=== PATIENT | female | born 1995 | race Caucasian/White ===

== ENCOUNTER 2016-11-19 10:14 | Emergency (ER) | payer MEDICAID, OTHER ==
[~2016-11-19] VITALS: Ht 165.1 cm; Wt 59.0 kg
[~2016-11-19 10:14] MED LIST: OMEP20EC4 PO
[2016-11-19 10:23] VITALS: BP 135/57
--- NOTE | 2016-11-19 10:26 | NUR ---
PT AMBULATED TO BED 8
[2016-11-19] MEDS ORDERED: DICYCLOMINE HCL LIQUID 20 MG, ALUMINUM HYD/MAG/SIMETHICONE 30 ML, LIDOCAINE VISCOUS 2% ... PO ONE ×3 (10:35)
[2016-11-19] MEDS ORDERED: LEVOFLOXACIN 500 MG TAB PO ONE (10:40)
[2016-11-19] MEDS ORDERED: PHENAZOPYRIDINE 100 MG TAB PO ONE (10:40)
--- NOTE | 2016-11-19 10:48 | NUR ---
21/F c/o UTI symptoms x3 weeks. Patient states she was prescribed Macrobid with no improvement. Pt c/o frequency, urgency, dysuira and suprapubic pain radiating to lower back, 8/. Denies fever or chills. Denies N/V/D. Skin warm and dry, normal in color for ethnicity. AOX4, ambulatory with steady gait. VSS.
[2016-11-19 11:09] LABS: BILIRUBIN,URINE NEGATIVE (NEGATIVE); BLOOD, URINE NEGATIVE (NEGATIVE); COLOR,URINE YELLOW (YELLOW); LEUKOCYTE ESTERASE ,URINE NEGATIVE (NEGATIVE); NITRITE, URINE NEGATIVE (NEGATIVE); PROTEIN,URINE NEGATIVE (NEGATIVE); UGLUCOSE NEGATIVE (NEGATIVE); UROBILINOGEN,URINE 0.2 EU/dL (0.2 - 1)
[2016-11-19 11:33] LABS: APPEARANCE,URINE SLIGHTLY HAZY (CLEAR)
[2016-11-19 11:34] LABS: RBC,URINE NONE SEEN /HPF (0-5); WBC,URINE 0-5 (RARE) /HPF (0-5)
[2016-11-19 11:35] LABS: BACTERIA,URINE 1+ /HPF (None Seen); SQUAMOUS EPITHELIAL CELL,UR 0-3 (FEW) /LPF (0-3 (FEW)); URINE AMORPHOUS PHOSPHATES 1+ /HPF (None Seen)
[2016-11-19 11:57] VITALS: BP 135/57
--- NOTE | 2016-11-19 11:58 | NUR ---
Patient discharged with v/s stable. Written and verbal after care instructions given and explained. Patient alert, oriented and verbalized understanding of instructions. Ambulatory with steady gait. All questions addressed prior to discharge. ID band removed. Patient advised to follow up with PMD. Rx of PYRIDIUM, KEFLEX, MYLANTA, AND BENTYL given. Patient educated on indication of medication including possible reaction and side effects. Opportunity to ask questions provided and answered.
== END 2016-11-19 11:15 | disposition home or self-care (01) ==
LOC: MED 10:14
DX: R10.30 Lower abdominal pain, unspecified (principal); K21.9 Gastro-esophageal reflux disease without esophagitis
CPT/HCPCS: 81001; 81025; 87086; 99284

== ENCOUNTER 2017-02-28 20:20 | Emergency (ER) | payer OTHER ==
[~2017-02-28] VITALS: Ht 162.6 cm; Wt 64.0 kg
[2017-02-28 20:46] VITALS: BP 116/74
--- NOTE | 2017-02-28 23:00 | NUR ---
PATIENT PRESENTS TO ED WITH C/O EPIGASTRIC PAIN RADIATING TO HER LOWER BACK, AND LOWER ABD PAIN, WITH H/A, AND BLEEDING IN HER STOOLS PT SKIN IS PINK/WARM/DRY; AAOX4 WITH EVEN AND STEADY GAIT; LUNGS CLEAR BL; HR EVEN AND REGULAR; PT DENIES ANY FEVER, CP, SOB, OR COUGH AT THIS TIME; PATIENT STATES PAIN OF 9/10 AT THIS TIME; VSS; PATIENT POSITIONED FOR COMFORT; HOB ELEVATED; BEDRAILS UP X2; BED DOWN. ER MD MADE AWARE OF PT STATUS.
--- NOTE | 2017-02-28 23:00 | NUR ---
Patient to bed 06.
[2017-02-28] MEDS ORDERED: ONDANSETRON 4 MG/2 ML VIAL IVP ONE (23:15)
[2017-02-28] MEDS ORDERED: KETOROLAC 30 MG/ML VIAL IVP ONE (23:15)
[2017-02-28] MEDS ORDERED: NACL 0.9% 500 ML IV ONE (23:15)
[2017-02-28 23:48] LABS: HEMATOCRIT 41.6 % (36-48); HEMOGLOBIN 13.1 g/dL (12.0-16.0); MEAN CORPUSCULAR HEMOGLOBIN 26 pg (27-31); MEAN CORPUSCULAR HGB CONC 32 g/dL (33-37); MEAN CORPUSCULAR VOLUME 82 fL (80-94); PLATELET COUNT (AUTO) 384 K/uL (140-450); RED BLOOD CELL COUNT(AUTO) 5.07 MIL/uL (4.20-5.40); RED CELL DISTRIBUTION WIDTH 14.8 % (11.6-13.7); WHITE BLOOD COUNT (AUTO) 8.9 K/uL (4.5-11.0)
[2017-02-28 23:53] LABS: ANION GAP 10.2 (8-16); CARBON DIOXIDE 27.5 mmol/L (21-32); POTASSIUM 3.7 mmol/L (3.5-5.1)
[2017-02-28 23:56] LABS: LYMPHOCYTES % (MANUAL) 32 % (20-46); MONOCYTES % (MANUAL) 7 % (5-12)
[2017-02-28 23:59] LABS: ALBUMIN 4.1 g/dL (3.4-5.0); TOTAL BILIRUBIN 0.2 mg/dL (0.0-1.0)
[2017-03-01 01:06] VITALS: BP 111/71
--- NOTE | 2017-03-01 01:07 | NUR ---
Patient discharged with v/s stable. Written and verbal after care instructions given and explained. Patient alert, oriented and verbalized understanding of instructions. Ambulatory with steady gait. All questions addressed prior to discharge. ID band removed. Patient advised to follow up with PMD. Rx of MAALOX,TRAMADOL,PROTONIX 40MG given. Patient educated on indication of medication including possible reaction and side effects. Opportunity to ask questions provided and answered.
== END 2017-03-01 01:07 | disposition home or self-care (01) ==
LOC: MED 20:20
DX: K29.70 Gastritis, unspecified, without bleeding (principal); K21.9 Gastro-esophageal reflux disease without esophagitis; Z79.899 Other long term (current) drug therapy
CPT/HCPCS: 36415; 76705; 80053; 81025; 83690; 85025; 96361; 96374; 96375; 99285; J1885; J2405; J7030; Q0092

== ENCOUNTER 2017-06-14 09:39 | Emergency (ER) | payer OTHER ==
[~2017-06-14] VITALS: Ht 162.6 cm; Wt 61.3 kg
[2017-06-14 09:46] VITALS: BP 119/69
--- NOTE | 2017-06-14 09:54 | NUR ---
Patient ambulated to bed 02.
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
--- NOTE | 2017-06-14 10:06 | NUR ---
ER MD BROWNING BY BEDSIDE
[2017-06-14] MEDS ORDERED: traMADol 50 MG TAB PO ONE (10:10)
[2017-06-14 10:40] VITALS: BP 106/61
== END 2017-06-14 10:40 | disposition home or self-care (01) ==
LOC: MED 09:39
DX: S00.03XA Contusion of scalp, initial encounter (principal); K29.70 Gastritis, unspecified, without bleeding; V49.9XXA Car occupant (driver) (passenger) injured in unspecified traffic accident, initial encounter; Y93.I9 Activity, other involving external motion; Y92.488 Other paved roadways as the place of occurrence of the external cause; Y99.8 Other external cause status
CPT/HCPCS: 99283

== ENCOUNTER 2017-09-12 15:39 | Emergency (ER) | payer OTHER ==
[~2017-09-12] VITALS: Ht 165.1 cm; Wt 59.9 kg
[2017-09-12 15:55] VITALS: BP 118/76
--- NOTE | 2017-09-12 17:06 | NUR ---
PATIENT AMB. TO BED #12
--- NOTE | 2017-09-12 17:18 | NUR ---
Pt presents to ED with x3 days of lower abdominal pain that radiates to left lower abdomen and lower back. Pt states Hx of ovarian cyst x6 months ago. VSS. Positioned in bed for comfor. CONCHITA YEE aware. Continue to monitor. Addendum: 09/12/17 at 1803 by [facility] Pt presents to ED with x3 days of lower abdominal pain that radiates to left lower abdomen and lower back 04/07. Pt states Hx of ovarian cyst x6 months ago. VSS. Positioned in bed for comfort. CONCHITA YEE aware. Continue to monitor.
--- NOTE | 2017-09-12 19:19 | NUR ---
REPORT RECEIVED FROM DEYSI GONZALEZ RN
--- NOTE | 2017-09-12 19:25 | NUR ---
REPORT RECEIVED FROM CHAPARRO JO
--- NOTE | 2017-09-12 19:29 | NUR ---
Any dixon in [facility] - 09/12/17 at 1952 by JUAN DIEGO REPORT RECEIVED FROM CHAPARRO JO
[2017-09-12 20:48] LABS: APPEARANCE,URINE CLEAR (CLEAR); BILIRUBIN,URINE NEGATIVE (NEGATIVE); BLOOD, URINE NEGATIVE (NEGATIVE); COLOR,URINE YELLOW (YELLOW); LEUKOCYTE ESTERASE ,URINE NEGATIVE (NEGATIVE); NITRITE, URINE NEGATIVE (NEGATIVE); UGLUCOSE NEGATIVE (NEGATIVE)
[2017-09-12 21:31] LABS: BASOPHILS # (AUTO) 0.4 K/uL (0.00-0.22); EOSINOPHILS # (AUTO) 0.1 K/uL (0-0.4); HEMATOCRIT 46.2 % (36-48); HEMOGLOBIN 14.7 g/dL (12.0-16.0); LYMPHOCYTES # (AUTO) 3.5 K/uL (2.5-16.5); MEAN CORPUSCULAR HEMOGLOBIN 26 pg (27-31); MEAN CORPUSCULAR HGB CONC 32 g/dL (33-37); MEAN CORPUSCULAR VOLUME 82 fL (80-94); MONOCYTES # (AUTO) 0.7 K/uL (0.8-1.0); NEUTROPHILS # (AUTO) 7.5 K/uL (1.8-7.7); PLATELET COUNT (AUTO) 332 K/uL (140-450); RED BLOOD CELL COUNT(AUTO) 5.66 MIL/uL (4.20-5.40); RED CELL DISTRIBUTION WIDTH 15.5 % (11.6-13.7); WHITE BLOOD COUNT (AUTO) 12.2 K/uL (4.8-10.8)
[2017-09-12 21:48] LABS: ANION GAP 11.9 (8-16); CREATININE 0.8 mg/dL (0.6-1.3); POTASSIUM 3.9 mmol/L (3.5-5.1)
[2017-09-12 21:55] LABS: TOTAL BILIRUBIN 0.5 mg/dL (0.0-1.0)
[2017-09-12 22:12] VITALS: BP 115/72
--- NOTE | 2017-09-12 22:12 | NUR ---
Patient discharged with v/s stable. Written and verbal after care instructions given and explained. Patient alert, oriented and verbalized understanding of instructions. Ambulatory with steady gait. All questions addressed prior to discharge. ID band removed. Patient advised to follow up with PMD. Rx of NORCO AND COLACE given. Patient educated on indication of medication including possible reaction and side effects. Opportunity to ask questions provided and answered.
== END 2017-09-12 22:12 | disposition home or self-care (01) ==
LOC: MED 15:39
DX: K59.00 Constipation, unspecified (principal); K21.9 Gastro-esophageal reflux disease without esophagitis
CPT/HCPCS: 36415; 74018; 74176; 80053; 81003; 81025; 83690; 85025; 85610; 85730; 99285; Q0092

== ENCOUNTER 2021-01-07 14:43 | Emergency (ER) | payer OTHER ==
[~2021-01-07] VITALS: Ht 162.6 cm; Wt 59.0 kg
[~2021-01-07 14:43] MED LIST changes: +OMEP20EC11 PO; -OMEP20EC4 PO
--- NOTE | 2021-01-07 14:57 | NUR ---
Pt ambulated to ER bed 3.
--- NOTE | 2021-01-07 15:01 | NUR ---
Pt ambulated to restroom for UA collection.
[2021-01-07] MEDS ORDERED: KETOROLAC 30 MG/ML VIAL IVP ONE (15:20)
[2021-01-07] MEDS ORDERED: NACL 0.9% 1,000 ML IV ONE (15:20)
--- NOTE | 2021-01-07 15:31 | NUR ---
BLOOD DRAWN BEDSIDE. CHAPARRO LEIJA WALKED OVER TO LAB
[2021-01-07] MEDS ORDERED: KETOROLAC 15 MG/ML VIAL IVP ONE ×2 (15:35)
[2021-01-07 15:43] LABS: BASOPHILS % (AUTO) 0.6 % (0.0-2.0); EOSINOPHILS # (AUTO) 0.1 K/uL (0-0.4); EOSINOPHILS % (AUTO) 1.7 % (0.0-4.0); HEMATOCRIT 37.3 % (36-48); HEMOGLOBIN 12.7 g/dL (12.0-16.0); LYMPHOCYTES # (AUTO) 1.7 K/uL (2.5-16.5); LYMPHOCYTES % (AUTO) 30.2 % (20.5-51.1); MEAN CORPUSCULAR HEMOGLOBIN 31 pg (27-31); MEAN CORPUSCULAR HGB CONC 34 g/dL (33-37); MEAN CORPUSCULAR VOLUME 92.1 fL (80-94); MONOCYTES # (AUTO) 0.4 K/uL (0.8-1.0); MONOCYTES % (AUTO) 7.4 % (1.7-9.3); NEUTROPHILS # (AUTO) 3.4 K/uL (1.8-7.7); NEUTROPHILS % (AUTO) 60.1 % (42.2-75.2); PLATELET COUNT (AUTO) 371 K/uL (140-450); RED BLOOD CELL COUNT(AUTO) 4.05 MIL/uL (4.20-5.40); RED CELL DISTRIBUTION WIDTH 13.9 % (11.6-13.7); WHITE BLOOD COUNT (AUTO) 5.7 K/uL (4.8-10.8)
--- NOTE | 2021-01-07 15:47 | NUR ---
PT AMBULATED TI CT WITH TECH Addendum: 01/07/21 at 1552 by [email or web address] PT AMBULATED TO CT WITH TECH
--- NOTE | 2021-01-07 15:47 | NUR ---
Any dixon in ED - 01/07/21 at 1552 by [email or web address] PT AMBULATED TO XRAY WITH TECH
--- NOTE | 2021-01-07 15:51 | NUR ---
25 Y/O FEMALE C/O UTI SYMPTOMS X2 MONTHS. PT HAS SEEN PCP X2 ALONG WITH 2 ER VISITS. PT WAS ADMITTED TO HOSPITAL IN [place] FOR 1 WEEK WITH UTI, PT HAD CATHETER PLACED. D/C 2 WEEKS AGO. SYMPTOMS CAME BACK, SAW PCP AND STILL HAS NOT GONE AWAY. PT C/O DYSURIA, CHILLS, LOWER BACK TENDERNESS. DENIES BLOOD IN URINE. PT STATES PAIN RADIATES TO LOWER VAGINAL AREA AND NO ABX HAVE BEEN ABLE TO HELP PMH:DENIES SX: [place] BUTT LIFT X2 WEEKS AGO (UNABLE TO SIT) NKDA
--- NOTE | 2021-01-07 16:51 | NUR ---
BP READING 99/54. JESSE GARCIA MADE AWARE
[2021-01-07 16:55] LABS: ALBUMIN 3.9 g/dL (3.4-5.0); ANION GAP 15.6 (8-16); CARBON DIOXIDE 23.4 mmol/L (21-32); CREATININE 0.8 mg/dL (0.6-1.3); TOTAL BILIRUBIN 0.4 mg/dL (0.0-1.0)
[2021-01-07] MEDS ORDERED: SULF-58 PO (16:59)
[2021-01-07 17:08] VITALS: BP 99/54
--- NOTE | 2021-01-07 17:09 | NUR ---
Patient discharged with v/s stable. Written and verbal after care instructions given and explained. Patient alert, oriented and verbalized understanding of instructions. Ambulatory with steady gait. All questions addressed prior to discharge. ID band removed. Patient advised to follow up with PMD. Rx of BACTRIM 400-80 MG TAB PO given. Patient educated on indication of medication including possible reaction and side effects. Opportunity to ask questions provided and answered.
== END 2021-01-07 17:09 | disposition home or self-care (01) ==
LOC: MED 14:43
DX: N39.0 Urinary tract infection, site not specified (principal); R30.0 Dysuria; R68.83 Chills (without fever); M54.5 Low back pain; K21.9 Gastro-esophageal reflux disease without esophagitis; Z98.890 Other specified postprocedural states; Z79.899 Other long term (current) drug therapy
CPT/HCPCS: 36415; 74176; 80053; 81002; 81025; 85025; 87086; 87491; 96361; 96374; 96375; 99284; J1885; J7030

== ENCOUNTER 2021-01-09 10:30 | Emergency (ER) | payer OTHER ==
[~2021-01-09] VITALS: Ht 162.6 cm; Wt 59.0 kg
[~2021-01-09 10:30] MED LIST changes: +SULF-58 PO
[2021-01-09 10:35] VITALS: BP 118/62
--- NOTE | 2021-01-09 10:35 | NUR ---
TO BED AMBULATORY
--- NOTE | 2021-01-09 10:55 | NUR ---
MD Vanessa at the bedside evaluating patient.
--- NOTE | 2021-01-09 11:00 | NUR ---
Patient is a 25 y/o female c/o dysuria x4 days. Patient states hx of multiple UTIs in the last 2 months. Per patient, had emirati butt lift surgery two weeks ago and was admitted to [facility] for sepsis. Patient states that she was given antibiotic for UTI but it has not helped. PMH denies NKA
[2021-01-09] MEDS ORDERED: PYR100 PO (11:15)
[2021-01-09] MEDS ORDERED: IBUP-2213 PO (11:15)
[2021-01-09] MEDS ORDERED: NITR100C7 PO (11:15)
[2021-01-09 11:29] VITALS: BP 118/62
--- NOTE | 2021-01-09 11:29 | NUR ---
Patient discharged with v/s stable. Written and verbal after care instructions given and explained. Patient alert, oriented and verbalized understanding of instructions. Ambulatory with steady gait. All questions addressed prior to discharge. ID band removed. Patient advised to follow up with PMD. Rx of nitrofurantoin, ibuprofen, pyridium given. Patient educated on indication of medication including possible reaction and side effects. Opportunity to ask questions provided and answered.
== END 2021-01-09 11:29 | disposition home or self-care (01) ==
LOC: MED 10:30
DX: N39.0 Urinary tract infection, site not specified (principal); R30.0 Dysuria; K21.9 Gastro-esophageal reflux disease without esophagitis; Z79.899 Other long term (current) drug therapy
CPT/HCPCS: 81002; 81025; 87086; 99283

== ENCOUNTER 2021-01-13 13:51 | Emergency (ER) | payer OTHER ==
[~2021-01-13] VITALS: Ht 162.6 cm; Wt 59.0 kg
[~2021-01-13 13:51] MED LIST changes: +IBUP-2213 PO; +NITR100C7 PO; +PYR100 PO; -SULF-58 PO
[2021-01-13 13:59] VITALS: BP 90/58
--- NOTE | 2021-01-13 14:18 | NUR ---
DR CLEMENTS AT BEDSIDE EVALUATING PT
--- NOTE | 2021-01-13 14:50 | NUR ---
URINE SAMPLE WALKED TO LAB AND GIVEN TO PAPER STRIPPER
[2021-01-13 14:56] LABS: APPEARANCE,URINE CLEAR (CLEAR); BILIRUBIN,URINE NEGATIVE (NEGATIVE); BLOOD, URINE TRACE-I (NEGATIVE); COLOR,URINE YELLOW (YELLOW); LEUKOCYTE ESTERASE ,URINE NEGATIVE (NEGATIVE); NITRITE, URINE POSITIVE (NEGATIVE); PH,URINE 6.5 (5.0-9.0); UGLUCOSE TRACE (NEGATIVE)
[2021-01-13 15:12] LABS: WBC,URINE 0-5 /HPF (0-5)
[2021-01-13 15:27] VITALS: BP 102/60
== END 2021-01-13 15:30 | disposition home or self-care (01) ==
LOC: MED 13:51
DX: R30.0 Dysuria (principal); M54.5 Low back pain; R10.30 Lower abdominal pain, unspecified; K21.9 Gastro-esophageal reflux disease without esophagitis; Z79.899 Other long term (current) drug therapy; Z98.890 Other specified postprocedural states
CPT/HCPCS: 81001; 81025; 87086; 99283

== ENCOUNTER 2023-11-30 13:12 | Emergency (ER) | payer MEDICAID ==
[~2023-11-30] VITALS: Ht 160 cm; Wt 59.0 kg
[2023-11-30 13:15] VITALS: BP 105/77; PULSE 94; RESP 20; TEMP 97.7; O2SAT 98
[2023-11-30 14:46] LABS: APPEARANCE,URINE CLEAR (CLEAR); BILIRUBIN,URINE NEGATIVE (NEGATIVE); BLOOD, URINE TRACE-I (NEGATIVE); COLOR,URINE YELLOW (YELLOW); LEUKOCYTE ESTERASE ,URINE TRACE (NEGATIVE); NITRITE, URINE NEGATIVE (NEGATIVE); PH,URINE 6.5 (5.0-9.0); PROTEIN,URINE NEGATIVE (NEGATIVE); UGLUCOSE NEGATIVE (NEGATIVE); UROBILINOGEN,URINE 0.2 EU/dL (0.2 - 1)
[2023-11-30 15:02] LABS: BACTERIA,URINE 10-30 (MOD) /HPF (None Seen); RBC,URINE 0-5 /HPF (0-5); SQUAMOUS EPITHELIAL CELL,UR 0-3 (FEW) /LPF (0-3 (FEW)); WBC,URINE 0-5 /HPF (0-5)
[2023-11-30] MEDS ORDERED: CEPH250C16 PO (15:08)
[2023-11-30] MEDS ORDERED: PHEN-1877 PO (15:08)
== END 2023-11-30 15:30 | disposition home or self-care (01) ==
LOC: MED 13:12
DX: N30.00 Acute cystitis without hematuria (principal); K21.9 Gastro-esophageal reflux disease without esophagitis; Z79.899 Other long term (current) drug therapy
CPT/HCPCS: 81001; 81025; 87086; 99283